=== PATIENT | female | born 1990 | race Caucasian/White ===

== ENCOUNTER 2016-07-25 06:23 | Inpatient (IN) | payer MEDICAID ==
[~2016-07-25 06:23] MED LIST: CEFAZOLIN 2 GM/D5W RTU 2 GM/50 ML RTUPB IV PRN; LACTATED RINGERS 1000 ML IV PRN; RINGERS SOLUTION,LACTATED 2,000 ML IV PRN
[2016-07-25 07:03] LABS: APPEARANCE,URINE CLOUDY; BILIRUBIN,URINE NEGATIVE (NEGATIVE); GLUCOSE, URINE NEGATIVE (NEGATIVE); KETONES,URINE TRACE mg/dL (NEGATIVE); LEUKOCYTE ESTERASE,URINE SMALL (NEGATIVE); NITRITE,URINE NEGATIVE (NEGATIVE); PROTEIN,URINE NEGATIVE (NEGATIVE); URINE SPECIFIC GRAVITY 1.009; UROBILINOGEN,URINE NEGATIVE mg/dL (<2.0)
[2016-07-25 07:14] LABS: URINE BARBITURATES SCREEN NEGATIVE; URINE METHADONE SCREEN NEGATIVE; URINE PHENCYCLIDINE SCREEN NEGATIVE
[2016-07-25 07:22] LABS: ABSOLUTE BASOPHILS # (AUTO) 0.1 10^3/uL (0.0-0.2); ABSOLUTE EOSINOPHILS # (AUTO) 0.1 10^3/uL (0.0-0.6); ABSOLUTE LYMPHOCYTES (AUTO) 2.8 10^3/uL (0.5-4.7); BASOPHILS % (AUTO) 0.7 % (0-2); EOSINOPHILS % (AUTO) 0.6 % (0-6); HEMOGLOBIN 10.6 g/dL (12.0-15.5); HGB HCT DIFFERENCE 0.8; LYMPHOCYTES % (AUTO) 28.2 % (13-45); MEAN CORPUSCULAR HEMOGLOBIN 30.4 pg (27.0-33.4); MEAN CORPUSCULAR HGB CONC 34.1 g/dL (32.0-36.0); MEAN CORPUSCULAR VOLUME 89 fl (80-97); MONOCYTES % (AUTO) 10.2 % (3-13); RED BLOOD COUNT 3.48 10^6/uL (3.72-5.28); RED CELL DISTRIBUTION WIDTH 14.1 % (11.5-14.0); SEGMENTED NEUTROPHILS % (AUTO) 60.3 % (42-78); WHITE BLOOD COUNT 9.9 10^3/uL (4.0-10.5)
[2016-07-25 07:27] LABS: URINE OPIATES LOW UNCONFIRMED POSITIVE
[2016-07-25] MEDS ORDERED: CEFAZOLIN 2 GM/D5W RTU 2 GM/50 ML RTUPB IV ONE (07:58)
[2016-07-25] MEDS ORDERED: OXYTOCIN 10 UNIT/ML VIAL ONE (09:05)
[2016-07-25] MEDS ORDERED: EPHEDRINE SULFATE INJ 50 MG/1 ML AMPULE ONE (09:05)
[2016-07-25] MEDS ORDERED: MORPHINE SULFATE 10 MG/ML INJ ONE (09:05)
[2016-07-25] MEDS ORDERED: MIDAZOLAM 2 MG/2 ML INJ ONE (09:05)
[2016-07-25] MEDS ORDERED: ONDANSETRON HCL INJ/PF 4 MG/2 ML SDV ONE (09:06)
[2016-07-25] MEDS ORDERED: FENTANYL CITRATE INJ/PF 100 MCG/2 ML AMPUL ONE (09:06)
[2016-07-25] MEDS ORDERED: LIDOCAINE 2% INJ-PF (20 MG/ML) 10 ML AMPUL ONE (09:06)
[2016-07-25] MEDS ORDERED: ACETAMINOPHEN 100 ML IV ONE (09:48)
[2016-07-25] MEDS ORDERED: MEPERIDINE HCL/PF INJ 25 MG/1 ML DISP.SYRIN IV PRN (09:52)
[2016-07-25] MEDS ORDERED: MORPHINE SULFATE 10 MG/ML INJ IV PRN (09:52)
[2016-07-25] MEDS ORDERED: PROMETHAZINE HCL INJ 25 MG/1 ML VIAL IV PRN ×3 (09:52→10:52)
[2016-07-25] MEDS ORDERED: FENTANYL CITRATE INJ/PF 100 MCG/2 ML AMPUL IV PRN ×3 (09:52)
[2016-07-25] MEDS ORDERED: DIPHENHYDRAMINE HCL 50 MG/ML VIAL IV PRN (09:52)
[2016-07-25] MEDS ORDERED: OXYCODONE-ACETAMINOPHEN 5-325 MG TABLET PO PRN ×3 (09:52→10:52)
--- NOTE | 2016-07-25 10:03 | Non Stress Test Report ---
Non Stress Test Datetime Report Generated by CPN: 07/25/2016 10:02 DEMOGRAPHIC EGA NST: 33.0 INDICATION Indication for Study: Ordered by Provider; Other Indication for Study (NST) Other: Labor check MONITORING Monitor Explained: Monitor Explained; Test Explained; Patient Verbalized Understanding Time on Monitor: 06/08/2016 11:00 Time off Monitor: 06/08/2016 11:36 NST Duration: 36 NST INTERVENTIONS NST Interventions: None Physician Notified NST: Dr Javed BABY A: [id number] BABY A Movement : Present Contraction Frequency : 3-5 Accelerations : 15X15 Decelerations : None Variability : Moderate 6-25bpm NST Review: Meets Criteria for Reactive NST NST Review and Verified By : Sarah Sampson RN NST Results: Reactive NST REPORT Report Trigger: Send Report
[2016-07-25] MEDS ORDERED: OXYTOCIN/NORMAL SALINE 20 UNIT/1,000 ML RTUINJ ONE (10:12)
[2016-07-25] MEDS ORDERED: ACETAMINOPHEN 325 MG TABLET PO PRN (10:52)
[2016-07-25] MEDS ORDERED: DIPH/PERTUSS(ACELL)/TETANUS VAC/PF 0.5 ML SYR (>=10YO) IM PRN (10:52)
[2016-07-25] MEDS ORDERED: HYDROMORPHONE HCL INJ/PF 2 MG/ML AMPULE IV PRN (10:52)
[2016-07-25] MEDS ORDERED: OXYTOCIN/NORMAL SALINE 1,000 ML IV PRN (10:52)
[2016-07-25] MEDS ORDERED: SIMETHICONE 80 MG TAB.CHEW PO PRN (10:52)
[2016-07-25] MEDS ORDERED: MEASLES,MUMPS&RUBELLA VACC/PF 0.5 ML VIAL SUBCUT PRN (10:52)
[2016-07-25] MEDS ORDERED: KETOROLAC TROMETHAMINE INJ/PF 30 MG/1 ML SDV ONE (10:57)
[2016-07-25] MEDS ORDERED: PRENATAL VITAMIN W-O CA NO5/FE FUMARATE/FA CAPSULE PO ONE (11:15)
[2016-07-25] MEDS ORDERED: HYDROMORPHONE HCL INJ/PF 2 MG/ML AMPULE ONE (11:42)
[2016-07-25] MEDS ORDERED: DOCUSATE SODIUM 100 MG CAPSULE PO ONE (12:00)
--- NOTE | 2016-07-25 12:00 | L&D Flow Sheet ---
LD Flowsheet Datetime Report Generated by CPN: 07/25/2016 12:00 Datetime: 07/25/2016 11:58 Pulse: 57 (QS system process) SpO2 (%): 98 (QS system process) Datetime: 07/25/2016 11:57 NBP Sys/Elo/Mean (mmHg): 115 (QS system process) : 73 (QS system process) : 88 (QS system process) Pulse: 54 (QS system process) Respirations: 14 (Kalli Bellavance, RNC) Datetime: 07/25/2016 11:53 Pulse: 56 (QS system process) SpO2 (%): 98 (QS system process) Datetime: 07/25/2016 11:52 NBP Sys/Elo/Mean (mmHg): 114 (QS system process) : 69 (QS system process) : 86 (QS system process) Pulse: 53 (QS system process) Respirations: 14 (Kalli Bellavance, RNC) Pain Pain Scale: 3 (Kalli Bellavance, RNC) Datetime: 07/25/2016 11:48 Pulse: 50 (QS system process) SpO2 (%): 98 (QS system process) Datetime: 07/25/2016 11:47 NBP Sys/Elo/Mean (mmHg): 118 (QS system process) : 68 (QS system process) : 87 (QS system process) Pulse: 56 (QS system process) Datetime: 07/25/2016 11:45 Pain Pain Scale: 3 (Kalli Bellavance, RNC) Pain Presence: Constant (Kalli Bellavance, RNC) Pain Type: Cramping (Kalli Bellavance, RNC) Pain Location: Abdomen (Kalli Bellavance, RNC) Pain Goal: 1 (Kalli Bellavance, RNC) Pain Relief Measures: Pain Medication Given (Kalli Bellavance, RNC) Pain Assessment Comments: medicated with dilaudid 2 mg iv (Kalli Bellavance, RNC) Datetime: 07/25/2016 11:43 NBP Sys/Elo/Mean (mmHg): 134 (QS system process) : 65 (QS system process) : 91 (QS system process) Pulse: 48 (QS system process) Pulse: 51 (QS system process) SpO2 (%): 100 (QS system process) Datetime: 07/25/2016 11:38 Pulse: 51 (QS system process) SpO2 (%): 100 (QS system process) Datetime: 07/25/2016 11:37 NBP Sys/Elo/Mean (mmHg): 127 (QS system process) : 80 (QS system process) : 99 (QS system process) Pulse: 49 (QS system process) Respirations: 15 (Kalli Bellavance, RNC) Pain Pain Scale: 3 (Kalli Bellavance, RNC) Pain Presence: Constant (Kalli Bellavance, RNC) Pain Type: Cramping (Kalli Bellavance, RNC) Pain Location: Abdomen (Kalli Bellavance, RNC) Pain Goal: 1 (Kalli Bellavance, RNC) Pain Relief Measures: Comfort Measures (Kalli Bellavance, RNC) Datetime: 07/25/2016 11:33 Pulse: 50 (QS system process) SpO2 (%): 100 (QS system process) Datetime: 07/25/2016 11:32 NBP Sys/Elo/Mean (mmHg): 129 (QS system process) : 76 (QS system process) : 99 (QS system process) Pulse: 47 (QS system process) Respirations: 14 (Kalli Bellavance, RNC) Datetime: 07/25/2016 11:28 Pulse: 50 (QS system process) SpO2 (%): 100 (QS system process) Datetime: 07/25/2016 11:27 NBP Sys/Elo/Mean (mmHg): 129 (QS system process) : 79 (QS system process) : 99 (QS system process) Pulse: 47 (QS system process) Respirations: 15 (Kalli Bellavance, RNC) Datetime: 07/25/2016 11:23 Pulse: 51 (QS system process) SpO2 (%): 100 (QS system process) Datetime: 07/25/2016 11:22 NBP Sys/Elo/Mean (mmHg): 131 (QS system process) : 70 (QS system process) : 93 (QS system process) Pulse: 53 (QS system process) Respirations: 16 (Kalli Bellavance, RNC) Pain Pain Scale: 3 (Kalli Bellavance, RNC) Pain Presence: Constant (Kalli Bellavance, RNC) Pain Type: Cramping (Kalli Bellavance, RNC) Pain Location: Abdomen (Kalli Bellavance, RNC) Pain Goal: 1 (Kalli Bellavance, RNC) Pain Relief Measures: Comfort Measures (Kalli Bellavance, RNC) Datetime: 07/25/2016 11:18 Pulse: 50 (QS system process) SpO2 (%): 100 (QS system process) Datetime: 07/25/2016 11:17 NBP Sys/Elo/Mean (mmHg): 137 (QS system process) : 76 (QS system process) : 98 (QS system process) Pulse: 55 (QS system process) Respirations: 14 (Kalli Bellavance, RNC) Datetime: 07/25/2016 11:13 Pulse: 53 (QS system process) SpO2 (%): 100 (QS system process) Datetime: 07/25/2016 11:12 NBP Sys/Elo/Mean (mmHg): 128 (QS system process) : 74 (QS system process) : 96 (QS system process) Pulse: 56 (QS system process) Respirations: 14 (Kalli Bellavance, RNC) Datetime: 07/25/2016 11:08 Pulse: 51 (QS system process) SpO2 (%): 100 (QS system process) Datetime: 07/25/2016 11:07 NBP Sys/Elo/Mean (mmHg): 129 (QS system process) : 73 (QS system process) : 96 (QS system process) Pulse: 53 (QS system process) Respirations: 16 (Kalli Bellavance, RNC) Pain Pain Scale: 3 (Kalli Bellavance, RNC) Pain Presence: Constant (Kalli Bellavance, RNC) Pain Type: Cramping (Kalli Bellavance, RNC) Pain Location: Abdomen (Kalli Bellavance, RNC) Pain Goal: 1 (Kalli Bellavance, RNC) Pain Relief Measures: Comfort Measures (Kalli Bellavance, RNC) Datetime: 07/25/2016 11:03 Pulse: 49 (QS system process) SpO2 (%): 100 (QS system process) Datetime: 07/25/2016 11:02 NBP Sys/Elo/Mean (mmHg): 135 (QS system process) : 83 (QS system process) : 104 (QS system process) Pulse: 52 (QS system process) Datetime: 07/25/2016 10:58 Pulse: 48 (QS system process) SpO2 (%): 100 (QS system process) Pain Pain Scale: 4 (Kalli Bellavance, RNC) Pain Presence: Constant (Kalli Bellavance, RNC) Pain Type: Cramping (Kalli Bellavance, RNC) Pain Location: Abdomen (Kalli Bellavance, RNC) Pain Goal: 1 (Kalli Bellavance, RNC) Pain Relief Measures: Pain Medication Given (Kalli Bellavance, RNC) Pain Assessment Comments: toradol (Kalli Bellavance, RNC) Datetime: 07/25/2016 10:57 NBP Sys/Elo/Mean (mmHg): 137 (QS system process) : 76 (QS system process) : 101 (QS system process) Pulse: 47 (QS system process) Respirations: 14 (Kalli Bellavance, RNC) Datetime: 07/25/2016 10:53 Pulse: 45 (QS system process) SpO2 (%): 100 (QS system process) Datetime: 07/25/2016 10:52 NBP Sys/Elo/Mean (mmHg): 136 (QS system process) : 70 (QS system process) : 98 (QS system process) Pulse: 48 (QS system process) Respirations: 16 (Kalli Bellavance, RNC) Datetime: 07/25/2016 10:48 Pulse: 52 (QS system process) SpO2 (%): 100 (QS system process) Datetime: 07/25/2016 10:47 NBP Sys/Elo/Mean (mmHg): 132 (QS system process) : 81 (QS system process) : 102 (QS system process) Pulse: 47 (QS system process) Respirations: 15 (Kalli Bellavance, RNC) Datetime: 07/25/2016 10:43 Pulse: 48 (QS system process) SpO2 (%): 100 (QS system process) Datetime: 07/25/2016 10:42 NBP Sys/Elo/Mean (mmHg): 133 (QS system process) : 80 (QS system process) : 100 (QS system process) Pulse: 48 (QS system process) Respirations: 15 (Kalli Bellavance, RNC) Datetime: 07/25/2016 10:38 Pulse: 47 (QS system process) SpO2 (%): 100 (QS system process) Datetime: 07/25/2016 10:37 NBP Sys/Elo/Mean (mmHg): 136 (QS system process) : 80 (QS system process) : 103 (QS system process) Pulse: 48 (QS system process) Respirations: 16 (Kalli Bellavance, RNC) Pain Pain Scale: 4 (Kalli Bellavance, RNC) Pain Presence: Constant (Kalli Bellavance, RNC) Pain Type: Cramping (Kalli Bellavance, RNC) Pain Location: Abdomen (Kalli Bellavance, RNC) Pain Goal: 1 (Kalli Bellavance, RNC) Pain Relief Measures: Comfort Measures (Annotations: patient resting comfortably) (Kalli Bellavance, RNC) Datetime: 07/25/2016 10:33 Pulse: 50 (QS system process) SpO2 (%): 100 (QS system process) Datetime: 07/25/2016 10:32 NBP Sys/Elo/Mean (mmHg): 138 (QS system process) : 79 (QS system process) : 101 (QS system process) Pulse: 50 (QS system process) Respirations: 15 (Kalli Bellavance, RNC) Datetime: 07/25/2016 10:28 Pulse: 52 (QS system process) SpO2 (%): 100 (QS system process) Datetime: 07/25/2016 10:27 NBP Sys/Elo/Mean (mmHg): 122 (QS system process) : 73 (QS system process) : 94 (QS system process) Pulse: 50 (QS system process) Respirations: 17 (Kalli Bellavance, RNC) Datetime: 07/25/2016 10:25 NBP Sys/Elo/Mean (mmHg): 135 (QS system process) : 72 (QS system process) : 96 (QS system process) Pulse: 54 (QS system process) Respirations: 16 (Kalli Bellavance, RNC) Datetime: 07/25/2016 10:23 Pulse: 51 (QS system process) SpO2 (%): 100 (QS system process) Datetime: 07/25/2016 10:22 Vital Signs Stage of : Recovery (Kalli Bellavance, RNC) Respirations: 16 (Kalli Bellavance, RNC) SpO2 (%): 100 (Kalli Bellavance, RNC) Temperature (F): 96.9 (Kalli Bellavance, RNC) Temperature (C): 36.1 (QS system process) Temperature Route: Oral (Kalli Bellavance, RNC) Pain Pain Scale: 4 (Kalli Bellavance, RNC) Pain Presence: Constant (Kalli Bellavance, RNC) Pain Type: Cramping (Kalli Bellavance, RNC) Pain Location: Abdomen (Kalli Bellavance, RNC) Pain Goal: 1 (Kalli Bellavance, RNC) Pain Relief Measures: Comfort Measures (Kalli Bellavance, RNC)
[2016-07-25] MEDS: OXYCODONE-ACETAMINOPHEN 5-325 MG TABLET PO PRN ×3 (13:00→21:12)
[2016-07-25] MEDS ORDERED: KETOROLAC TROMETHAMINE INJ/PF 30 MG/1 ML SDV IV SCH (14:00)
[2016-07-25] MEDS: KETOROLAC TROMETHAMINE INJ/PF 30 MG/1 ML SDV IV SCH (17:06)
[2016-07-25] MEDS: DOCUSATE SODIUM 100 MG CAPSULE PO SCH (17:06)
--- NOTE | 2016-07-25 19:00 | L&D Flow Sheet ---
LD Flowsheet Datetime Report Generated by CPN: 07/25/2016 19:00 Datetime: 07/25/2016 12:08 Pulse: 54 (QS system process) SpO2 (%): 97 (QS system process) Datetime: 07/25/2016 12:07 NBP Sys/Elo/Mean (mmHg): 108 (QS system process) : 69 (QS system process) : 83 (QS system process) Pulse: 55 (QS system process) Respirations: 14 (Kalli Bellavance, RNC) SpO2 (%): 100 (Kalli Bellavance, RNC) Temperature (F): 97.0 (Kalli Bellavance, RNC) Temperature (C): 36.1 (QS system process) Temperature Route: Oral (Kalli Bellavance, RNC) Datetime: 07/25/2016 12:03 Pulse: 55 (QS system process) SpO2 (%): 99 (QS system process) Datetime: 07/25/2016 12:02 NBP Sys/Elo/Mean (mmHg): 111 (QS system process) : 72 (QS system process) : 86 (QS system process) Pulse: 53 (QS system process) Respirations: 16 (Kalli Bellavance, RNC) Datetime: 07/25/2016 11:58 Pulse: 57 (QS system process) SpO2 (%): 98 (QS system process) Datetime: 07/25/2016 11:57 NBP Sys/Elo/Mean (mmHg): 115 (QS system process) : 73 (QS system process) : 88 (QS system process) Pulse: 54 (QS system process) Respirations: 14 (Kalli Bellavance, RNC) Datetime: 07/25/2016 11:53 Pulse: 56 (QS system process) SpO2 (%): 98 (QS system process) Datetime: 07/25/2016 11:52 NBP Sys/Elo/Mean (mmHg): 114 (QS system process) : 69 (QS system process) : 86 (QS system process) Pulse: 53 (QS system process) Respirations: 14 (Kalli Bellavance, RNC) Pain Scale: 3 (Kalli Bellavance, RNC) Datetime: 07/25/2016 11:48 Pulse: 50 (QS system process) SpO2 (%): 98 (QS system process) Datetime: 07/25/2016 11:47 NBP Sys/Elo/Mean (mmHg): 118 (QS system process) : 68 (QS system process) : 87 (QS system process) Pulse: 56 (QS system process) Datetime: 07/25/2016 11:45 Pain Scale: 3 (Kalli Bellavance, RNC) Pain Presence: Constant (Kalli Bellavance, RNC) Pain Type: Cramping (Kalli Bellavance, RNC) Pain Location: Abdomen (Kalli Bellavance, RNC) Pain Goal: 1 (Kalli Bellavance, RNC) Pain Relief Measures: Pain Medication Given (Kalli Bellavance, RNC) Pain Assessment Comments: medicated with dilaudid 2 mg iv (Kalli Bellavance, RNC) Datetime: 07/25/2016 11:43 NBP Sys/Elo/Mean (mmHg): 134 (QS system process) : 65 (QS system process) : 91 (QS system process) Pulse: 48 (QS system process) Pulse: 51 (QS system process) SpO2 (%): 100 (QS system process) Datetime: 07/25/2016 11:38 Pulse: 51 (QS system process) SpO2 (%): 100 (QS system process) Datetime: 07/25/2016 11:37 NBP Sys/Elo/Mean (mmHg): 127 (QS system process) : 80 (QS system process) : 99 (QS system process) Pulse: 49 (QS system process) Respirations: 15 (Kalli Bellavance, RNC) Pain Scale: 3 (Kalli Bellavance, RNC) Pain Presence: Constant (Kalli Bellavance, RNC) Pain Type: Cramping (Kalli Bellavance, RNC) Pain Location: Abdomen (Kalli Bellavance, RNC) Pain Goal: 1 (Kalli Bellavance, RNC) Pain Relief Measures: Comfort Measures (Kalli Bellavance, RNC) Datetime: 07/25/2016 11:33 Pulse: 50 (QS system process) SpO2 (%): 100 (QS system process) Datetime: 07/25/2016 11:32 NBP Sys/Elo/Mean (mmHg): 129 (QS system process) : 76 (QS system process) : 99 (QS system process) Pulse: 47 (QS system process) Respirations: 14 (Kalli Bellavance, RNC) Datetime: 07/25/2016 11:28 Pulse: 50 (QS system process) SpO2 (%): 100 (QS system process) Datetime: 07/25/2016 11:27 NBP Sys/Elo/Mean (mmHg): 129 (QS system process) : 79 (QS system process) : 99 (QS system process) Pulse: 47 (QS system process) Respirations: 15 (Kalli Bellavance, RNC) Datetime: 07/25/2016 11:23 Pulse: 51 (QS system process) SpO2 (%): 100 (QS system process) Datetime: 07/25/2016 11:22 NBP Sys/Elo/Mean (mmHg): 131 (QS system process) : 70 (QS system process) : 93 (QS system process) Pulse: 53 (QS system process) Respirations: 16 (Kalli Bellavance, RNC) Pain Scale: 3 (Kalli Bellavance, RNC) Pain Presence: Constant (Kalli Bellavance, RNC) Pain Type: Cramping (Kalli Bellavance, RNC) Pain Location: Abdomen (Kalli Bellavance, RNC) Pain Goal: 1 (Kalli Bellavance, RNC) Pain Relief Measures: Comfort Measures (Kalli Bellavance, RNC) Datetime: 07/25/2016 11:18 Pulse: 50 (QS system process) SpO2 (%): 100 (QS system process) Datetime: 07/25/2016 11:17 NBP Sys/Elo/Mean (mmHg): 137 (QS system process) : 76 (QS system process) : 98 (QS system process) Pulse: 55 (QS system process) Respirations: 14 (Kalli Bellavance, RNC) Datetime: 07/25/2016 11:13 Pulse: 53 (QS system process) SpO2 (%): 100 (QS system process) Datetime: 07/25/2016 11:12 NBP Sys/Elo/Mean (mmHg): 128 (QS system process) : 74 (QS system process) : 96 (QS system process) Pulse: 56 (QS system process) Respirations: 14 (Kalli Bellavance, RNC) Datetime: 07/25/2016 11:08 Pulse: 51 (QS system process) SpO2 (%): 100 (QS system process) Datetime: 07/25/2016 11:07 NBP Sys/Elo/Mean (mmHg): 129 (QS system process) : 73 (QS system process) : 96 (QS system process) Pulse: 53 (QS system process) Respirations: 16 (Kalli Bellavance, RNC) Pain Scale: 3 (Kalli Bellavance, RNC) Pain Presence: Constant (Kalli Bellavance, RNC) Pain Type: Cramping (Kalli Bellavance, RNC) Pain Location: Abdomen (Kalli Bellavance, RNC) Pain Goal: 1 (Kalli Bellavance, RNC) Pain Relief Measures: Comfort Measures (Kalli Bellavance, RNC) Datetime: 07/25/2016 11:03 Pulse: 49 (QS system process) SpO2 (%): 100 (QS system process) Datetime: 07/25/2016 11:02 NBP Sys/Elo/Mean (mmHg): 135 (QS system process) : 83 (QS system process) : 104 (QS system process) Pulse: 52 (QS system process) Datetime: 07/25/2016 10:58 Pulse: 48 (QS system process) SpO2 (%): 100 (QS system process) Pain Scale: 4 (Kalli Bellavance, RNC) Pain Presence: Constant (Kalli Bellavance, RNC) Pain Type: Cramping (Kalli Bellavance, RNC) Pain Location: Abdomen (Kalli Bellavance, RNC) Pain Goal: 1 (Kalli Bellavance, RNC) Pain Relief Measures: Pain Medication Given (Kalli Bellavance, RNC) Pain Assessment Comments: toradol (Kalli Bellavance, RNC) Datetime: 07/25/2016 10:57 NBP Sys/Elo/Mean (mmHg): 137 (QS system process) : 76 (QS system process) : 101 (QS system process) Pulse: 47 (QS system process) Respirations: 14 (Kalli Bellavance, RNC) Datetime: 07/25/2016 10:53 Pulse: 45 (QS system process) SpO2 (%): 100 (QS system process) Datetime: 07/25/2016 10:52 NBP Sys/Elo/Mean (mmHg): 136 (QS system process) : 70 (QS system process) : 98 (QS system process) Pulse: 48 (QS system process) Respirations: 16 (Kalli Bellavance, RNC) Datetime: 07/25/2016 10:48 Pulse: 52 (QS system process) SpO2 (%): 100 (QS system process) Datetime: 07/25/2016 10:47 NBP Sys/Elo/Mean (mmHg): 132 (QS system process) : 81 (QS system process) : 102 (QS system process) Pulse: 47 (QS system process) Respirations: 15 (Kalli Bellavance, RNC) Datetime: 07/25/2016 10:43 Pulse: 48 (QS system process) SpO2 (%): 100 (QS system process) Datetime: 07/25/2016 10:42 NBP Sys/Elo/Mean (mmHg): 133 (QS system process) : 80 (QS system process) : 100 (QS system process) Pulse: 48 (QS system process) Respirations: 15 (Kalli Bellavance, RNC) Datetime: 07/25/2016 10:38 Pulse: 47 (QS system process) SpO2 (%): 100 (QS system process) Datetime: 07/25/2016 10:37 NBP Sys/Elo/Mean (mmHg): 136 (QS system process) : 80 (QS system process) : 103 (QS system process) Pulse: 48 (QS system process) Respirations: 16 (Kalli Bellavance, RNC) Pain Scale: 4 (Kalli Bellavance, RNC) Pain Presence: Constant (Kalli Bellavance, RNC) Pain Type: Cramping (Kalli Bellavance, RNC) Pain Location: Abdomen (Kalli Bellavance, RNC) Pain Goal: 1 (Kalli Bellavance, RNC) Pain Relief Measures: Comfort Measures (Annotations: patient resting comfortably) (Kalli Bellavance, RNC) Datetime: 07/25/2016 10:33 Pulse: 50 (QS system process) SpO2 (%): 100 (QS system process) Datetime: 07/25/2016 10:32 NBP Sys/Elo/Mean (mmHg): 138 (QS system process) : 79 (QS system process) : 101 (QS system process) Pulse: 50 (QS system process) Respirations: 15 (Kalli Bellavance, RNC) Datetime: 07/25/2016 10:28 Pulse: 52 (QS system process) SpO2 (%): 100 (QS system process) Datetime: 07/25/2016 10:27 NBP Sys/Elo/Mean (mmHg): 122 (QS system process) : 73 (QS system process) : 94 (QS system process) Pulse: 50 (QS system process) Respirations: 17 (Kalli Bellavance, RNC) Datetime: 07/25/2016 10:25 NBP Sys/Elo/Mean (mmHg): 135 (QS system process) : 72 (QS system process) : 96 (QS system process) Pulse: 54 (QS system process) Respirations: 16 (Kalli Bellavance, RNC) Datetime: 07/25/2016 10:23 Pulse: 51 (QS system process) SpO2 (%): 100 (QS system process) Datetime: 07/25/2016 10:22 Stage of : Recovery (Kalli Bellavance, RNC) Respirations: 16 (Kalli Bellavance, RNC) SpO2 (%): 100 (Kalli Bellavance, RNC) Temperature (F): 96.9 (Kalli Bellavance, RNC) Temperature (C): 36.1 (QS system process) Temperature Route: Oral (Kalli Bellavance, RNC) Pain Scale: 4 (Kalli Bellavance, RNC) Pain Presence: Constant (Kalli Bellavance, RNC) Pain Type: Cramping (Kalli Bellavance, RNC) Pain Location: Abdomen (Kalli Bellavance, RNC) Pain Goal: 1 (Kalli Bellavance, RNC) Pain Relief Measures: Comfort Measures (Kalli Bellavance, RNC)
[2016-07-25] MEDS: RINGERS SOLUTION,LACTATED 1,000 ML IV PRN ×2 (20:08→23:37)
[2016-07-25] MEDS ORDERED: RINGERS SOLUTION,LACTATED 500 ML IV ONE (20:45)
[2016-07-26] MEDS: KETOROLAC TROMETHAMINE INJ/PF 30 MG/1 ML SDV IV SCH (01:23)
[2016-07-26] MEDS: OXYCODONE-ACETAMINOPHEN 5-325 MG TABLET PO PRN ×5 (01:28→21:45)
--- NOTE | 2016-07-26 06:00 | L&D General Admission ---
General Admit Datetime Report Generated by CPN: 07/26/2016 06:00 INFORMATION Patient Age: 26 (06/08/2016 09:32:QS system process) EDC: 07/27/2016 00:00 (06/08/2016 10:45:Yelitza Chowdhury RN) Para: 1 (06/08/2016 14:00:Yelitza Chowdhury RN) Baby, Number in Womb: 1 (06/08/2016 14:00:Yelitza Chowdhury RN) CARE Month of 1st Visit: 03/2016 (06/08/2016 10:45:Sindi Stanton RN) Adequate Care: No (06/08/2016 10:45:Sindi Stanton RN) Prepregnancy Weight (lb): 93 (06/08/2016 10:45:Sindi Stanton RN) Prepregnancy Weight (kg): 42.3 (06/08/2016 10:45:QS system process) Height (in): 63 (07/25/2016 11:23:QS system process) ALLERGIES Medication Allergies: No Known Allergies (06/08/2016) (06/08/2016 09:32:QS system process) DEMOGRAPHICS Address: [address] [place] [id number] (06/08/2016 09:32:QS system process) Zipcode: [id number] (06/08/2016 09:32:QS system process) Home (06/08/2016 10:33:QS system process) N: [id number] (06/08/2016 09:32:QS system process) Next of Kin Name: YOLANDA RALPH (06/08/2016 10:33:QS system process) Next of Kin (06/08/2016 10:33:QS system process) Next of Kin Relationship: OR (06/08/2016 10:33:QS system process) Date of : 1990 (06/08/2016 09:32:QS system process) Marital Status: Single (06/08/2016 09:32:QS system process) Sex: Female (06/08/2016 09:32:QS system process) Race: (06/08/2016 09:32:QS system process) Ethnicity: Non- or (06/08/2016 09:32:QS system process) Sabianism: Taoism (06/08/2016 09:32:QS system process) Feeding Preference: Formula (06/08/2016 10:45:Michaela Lewis RN) Benefit of Breast Feed Discussed: Yes (06/08/2016 10:45:Michaela Lewis RN) LABS Blood Type: O Negative (06/08/2016 10:45:Sindi Stanton RN) Antibody Screen: Negative (06/08/2016 10:45:Sindi Stanton RN) Rho(G) this : Yes (06/08/2016 10:45:Sindi Stanton RN) Date Rho(G) Given: 05/06/16 (06/08/2016 10:45:Sindi Stanton RN) Hemoglobin: 10.6 L (07/25/2016 07:00:QS system process) Hematocrit: 31.0 L (07/25/2016 07:00:QS system process) MCV: 89 (07/25/2016 07:00:QS system process) RPR/VDRL: Nonreactive (06/08/2016 10:45:Sindi Stanton RN) HIV Exposure Test: Negative (06/08/2016 10:45:Sindi Stanton RN) Hepatitis B: Negative (06/08/2016 10:45:Sindi Stanton RN) Rubella: Immune (06/08/2016 10:45:Sindi Stanton RN) OB/PREVIOUS HISTORY Comments Obstetrical History: G1: 2010 38 week C/Section baby girl, Breech, 6 lb 11 oz G2: Current; Late care at 25 weeks, Lapse in care 28-37 weeks (06/08/2016 10:45:Sindi Stanton RN)
--- NOTE | 2016-07-26 06:00 | L&D Current Admission ---
Current Admit Datetime Report Generated by CPN: 07/26/2016 06:00 ADMISSION INFORMATION Chief Complaint: Uterine Cramping; Nausea; Vomiting (06/08/2016 11:10:Yelitza Chowdhury RN)
[2016-07-26 06:33] LABS: HEMATOCRIT 26.9 % (36.0-47.0); HEMOGLOBIN 8.9 g/dL (12.0-15.5); HGB HCT DIFFERENCE -0.2; MEAN CORPUSCULAR HEMOGLOBIN 29.8 pg (27.0-33.4); MEAN CORPUSCULAR VOLUME 90 fl (80-97); RED BLOOD COUNT 2.98 10^6/uL (3.72-5.28); RED CELL DISTRIBUTION WIDTH 14.3 % (11.5-14.0); WHITE BLOOD COUNT 14.9 10^3/uL (4.0-10.5)
[2016-07-26] MEDS: IBUPROFEN 800 MG TABLET PO SCH ×3 (09:24→20:12)
[2016-07-26] MEDS: DOCUSATE SODIUM 100 MG CAPSULE PO SCH ×2 (09:24→17:39)
[2016-07-26] MEDS: PRENATAL VITAMIN W-O CA NO5/FE FUMARATE/FA CAPSULE PO SCH (09:25)
--- NOTE | 2016-07-26 11:40 | PDOC PROGRESS REPORT ---
Subjective-OB Subjective: Post Delivery Day: 26 year old. s/p repeat c section O negative/ no rhogam indicated ambulating well +flatus -BM abdomen soft and nontender binder in place incision dry and intact pt requesting pain meds every 4 hours encourage rest and ambulation anticipate d/c in AM Physical Exam (OB) Vital Signs: Temp Pulse Resp BP Pulse Ox 97.9 F 70 20 105/70 99 07/26/16 08:11 07/26/16 08:11 07/26/16 08:11 07/26/16 08:11 07/26/16 08:11 Intake & Output 07/25/16 07/26/16 07/27/16 06:59 06:59 06:59 Intake Total 1250 Output Total 2050 Balance -800 Weight 54 kg - PIH/Pre-Eclampsia Clonus: Negative - Dressing Removed: Yes Incision: Open Closure Type: Sutures - Lochia Lochia Amount: Small 10-25 ml Lochia Color: Rubra/Red - Abdomen Description: Tender, Soft Hernia Present: No Fundal Description: Firm, Midline Fundal Height: u/u - u/2 Objective-Diagnostic Laboratory: 07/26/16 06:24 07/26/16 06:24 WBC 14.9 H RBC 2.98 L Hgb 8.9 L Hct 26.9 L MCV 90 MCH 29.8 MCHC 33.0 RDW 14.3 H Plt Count 208
[2016-07-26] MEDS ORDERED: IBUPROFEN 800 MG TABLET PO SCH (12:00)
[2016-07-27] MEDS: IBUPROFEN 800 MG TABLET PO SCH ×3 (02:09→15:40)
[2016-07-27] MEDS: OXYCODONE-ACETAMINOPHEN 5-325 MG TABLET PO PRN ×3 (04:30→13:20)
[2016-07-27] MEDS: DOCUSATE SODIUM 100 MG CAPSULE PO SCH ×2 (09:07→17:52)
[2016-07-27] MEDS: PRENATAL VITAMIN W-O CA NO5/FE FUMARATE/FA CAPSULE PO SCH (09:07)
--- NOTE | 2016-07-27 12:01 | PDOC DISCHARGE SUMMARY ---
Final Diagnosis Discharge Date: 07/27/16 - Final Diagnosis (1) delivery delivered Is this a current diagnosis for this admission?: Yes Discharge Data - Discharge Medication Home Medications: Pnv with Ca,No.72/Iron/FA [ Plus Tablet] 1 tab PO DAILY 06/08/16 Reason(s) for Admission: Ceasarean Section-Repeat Procedures: None Intrapartum Procedure(s): : Low Cervical, Transverse - Diagnosis Test Laboratory: Temp Pulse Resp BP Pulse Ox 98.1 F 66 16 128/71 H 99 07/27/16 08:50 07/27/16 08:50 07/27/16 08:50 07/27/16 08:50 07/27/16 08:50 07/25/16 07/25/16 07/26/16 06:45 07:00 06:24 RBC 3.48 L 2.98 L Hgb 10.6 L 8.9 L Hct 31.0 L 26.9 L Urine Opiates Screen UNCONFIRMED POSITIVE - Discharge information/Instructions Discharge Activity: Balance Activity w/Rest, No Lifting Over 10 Pounds, No Lifting/Push/Pulling, Pelvic Rest, No tub bath Discharge Diet: Regular Disposition: HOME, SELF-CARE Follow up with: [facility] in: 5, Days
[2016-07-27 13:40] LABS: ABSOLUTE BASOPHILS # (AUTO) 0.1 10^3/uL (0.0-0.2); ABSOLUTE EOSINOPHILS # (AUTO) 0.1 10^3/uL (0.0-0.6); ABSOLUTE LYMPHOCYTES (AUTO) 1.8 10^3/uL (0.5-4.7); ABSOLUTE MONOCYTES (AUTO) 0.5 10^3/uL (0.1-1.4); ABSOLUTE NEUT (AUTO) 9.1 10^3/uL (1.7-8.2); BASOPHILS % (AUTO) 0.4 % (0-2); EOSINOPHILS % (AUTO) 0.7 % (0-6); HEMATOCRIT 25.6 % (36.0-47.0); HEMOGLOBIN 8.4 g/dL (12.0-15.5); HGB HCT DIFFERENCE -0.4; LYMPHOCYTES % (AUTO) 15.8 % (13-45); MEAN CORPUSCULAR HEMOGLOBIN 29.8 pg (27.0-33.4); MEAN CORPUSCULAR HGB CONC 32.8 g/dL (32.0-36.0); MEAN CORPUSCULAR VOLUME 91 fl (80-97); RED BLOOD COUNT 2.81 10^6/uL (3.72-5.28); RED CELL DISTRIBUTION WIDTH 14.4 % (11.5-14.0); SEGMENTED NEUTROPHILS % (AUTO) 79.1 % (42-78); WHITE BLOOD COUNT 11.5 10^3/uL (4.0-10.5)
[2016-07-27 16:27] VITALS: BP 118/78
--- NOTE | 2016-08-25 23:20 | Operative Report ---
Operative Report DATE OF SURGERY: 07/25/16 PREOPERATIVE DIAGNOSIS: 39 week , previous cesaraean section POSTOPERATIVE DIAGNOSIS: same, delivered OPERATION: Repeat Low Transverse Section SURGEON: LUDY CAMPOS ANESTHESIA: Spinal TISSUE REMOVED OR ALTERED: placenta COMPLICATIONS: none ESTIMATED BLOOD LOSS: 600cc INTRAOPERATIVE FINDINGS: viable male infant weight 7-6, ap 9/9. spontaneous intact placenta 3vc. normal appearing uterus, ovaries, tubes PROCEDURE: After appropriate consents had been obtained, the patient was taken to the operating room where regional anesthesia was placed without difficulty. The patient was prepped and draped in the normal sterile fashion in the dorsal supine position with a leftward tilt. Time out procedure was performed. Anesthesia was determined to be adequate and a pfannenstiel incision was made through the prior scar. The fascia was nicked in the midline then extended bilaterally with Starks scissors. The fascia was elevated and then the rectus muscles dissected off sharply. The rectus muscles were then in the midline and the peritonuem identified. The peritoneum was entered sharply and extended with good visualization of the bladder. Bladder blade was inserted and the bladder flap carefully dissected off the lower uterine segment. A transverse incision was made with the scalpel then extended bilaterally in an upward outward motion across the lower uterine segment. Amniotomy revealed clear fluid. The vertex was grasped and elevated easily through the incision followed by the remainder of the infant. The cord was doubly clamped and ligated. The infant was handed off the operative field to the waiting pediatric team. The placenta was then extracted manually intact. The uterus was exteriorized and cleansed of membranous tissue with a sponge on the studio camera operator's hand. The uterine incision was then repaired using 0 vicryl in a running locked fashion. A second layer of the same suture was used to imbricate for hemastasis. The uterus was then returned to the abdomen and gutters were cleared of clots and debris. The fascial incision was closed with 0 vicryl in a running fashion to the midline. The subcutaneous layer was closed with 0 plain in a running stitch. the skin was closed with 4-0 monocryl in subcuticular running stitch. Sponge, lap and needle counts were correct. The patient was transferred to recovery in stable condition.
== END 2016-07-27 18:40 | disposition home or self-care (01) | DRG 765 ==
LOC: 2S 06:23
PROVIDERS: ADMIT Obstetrics & Gynecology; ATTEND Obstetrics & Gynecology
PROC: 4A1HXCZ Monitoring of Products of Conception, Cardiac Rate, External Approach (ICD-10-PCS; 2016-07-25)
PROC: 10D00Z1 Extraction of Products of Conception, Low, Open Approach (ICD-10-PCS; principal; 2016-07-25 09:15)
DX: O34.211 Maternal care for low transverse scar from previous cesarean delivery (principal); O99.324 Drug use complicating childbirth; O69.81X0 Labor and delivery complicated by cord around neck, without compression, not applicable or unspecified; F12.90 Cannabis use, unspecified, uncomplicated; F11.90 Opioid use, unspecified, uncomplicated; F13.90 Sedative, hypnotic, or anxiolytic use, unspecified, uncomplicated; Z37.0 Single live birth; Z3A.39 39 weeks gestation of pregnancy
CPT/HCPCS: 1961; 36415; 59025; 80307; 81001; 85025; 85027; 86850; 86870; 86900; 86901; 94799; G0480; J0131; J0690; J1170; J1885; J2250; J2270; J2405; J2590; J3010; J3490; J7120

== ENCOUNTER 2017-03-20 14:50 | Emergency (ER) | payer MEDICAID ==
[2017-03-20 15:22] VITALS: BP 102/66
--- NOTE | 2017-03-20 15:35 | ER Document Report ---
ED General - General Mode of Arrival: Ambulatory Information source: Patient TRAVEL OUTSIDE OF THE [place] IN LAST 30 DAYS: No - General Chief Complaint: Rib Pain Stated Complaint: ABDOMINAL PAIN Time Seen by Provider: 03/20/17 15:32 Notes: Patient is a 26-year-old female who presents from home with right sided posterior rib pain that started yesterday. She states that while playing with her dog she was pushed backwards into a closet door. She states the pain is worse when she coughs, sneezes, takes a deep breath, bends over or picks up anything heavy. She has tried ibuprofen with no relief. She states at the time of the incident yesterday she was evaluated by EMS who told her that she could have a "cracked rib" but there was not much she could do about it. She states that the pain worsened last when she wanted to come in and be seen. ( JULITA MCFADDEN) - Related Data Allergies/Adverse Reactions: No Known Allergies Allergy (Verified 06/08/16 07:53) Home Medications: Current Home Medications No Home Medications 03/20/17 [History] Past Medical History - General Information source: Patient - Social History Smoking Status: Current Every Day Smoker Family History: None Renal/ Medical History: Denies: Hx Peritoneal Dialysis Past Surgical History: Reports: Hx Section - Immunizations Hx Diphtheria, Pertussis, Tetanus Vaccination: Yes Review of Systems - Review of Systems Constitutional: No symptoms reported EENT: No symptoms reported Cardiovascular: See HPI Respiratory: See HPI Gastrointestinal: No symptoms reported Genitourinary: No symptoms reported Female Genitourinary: No symptoms reported Musculoskeletal: No symptoms reported Skin: No symptoms reported Hematologic/Lymphatic: No symptoms reported Neurological/Psychological: No symptoms reported Physical Exam - Vital signs Vitals: Temp Pulse BP Pulse Ox 98.1 F 116 H 102/66 95 03/20/17 15:20 03/20/17 15:20 03/20/17 15:20 03/20/17 15:20 - Notes Notes: PHYSICAL EXAM: CONSTITUTIONAL: Alert and oriented, well-appearing and in no acute distress. HENT: Normocephalic, atraumatic. Moist mucous membranes. EYES: Pupils equal round and reactive to light, EOM intact. Sclera anicteric, conjunctiva are normal. No entrapment. NECK: supple without lymphadenopathy. No midline tenderness or paraspinous muscle spasms. No step-offs or deformities. ROM intact. HEART: Regular rate and rhythm without murmurs. LUNGS: CTAB and equal. No wheezes, rales or rhonchi. BACK: Tender to palpation just lateral to thoracic spine along rib articulation of ribs number 7-10,no ecchymosis, step-offs, crepitus or swelling noted. no paraspinous spasm, 5+/5 strengths, DTRs 2+. EXTREMITIES: Normal range of motion, no pitting edema. No cyanosis. Cap Refill < 3 seconds. NEURO: Cranial nerves grossly intact. Normal sensory/motor exams. PSYCH: Normal mood, normal affect. SKIN: Warm and dry. Normal turgor. No rashes or lesions noted. (JULITA MCFADDEN) Course - Diagnostic Test Radiology reviewed: Image reviewed, Reports reviewed - Re-evaluation Re-evalutation: 03/20/17 15:35 Patient seen and examined. No palpable crepitus or ecchymosis noted on exam. Lungs with breath sounds equal throughout. Will obtain xray and give IM toradol for pain. 03/20/17 17:33 Reviewed imaging studies which did not show any acute rib fractures. Discussed imaging results with patient. As I was going over imaging results and explaining that I would be giving her a prescription for anti-inflammatories and muscle relaxers, patient became irate that she would not be receiving any narcotic pain medication. I explained that I did not think was be appropriate for me to treat her with narcotic pain medication as she did not have any actual fractures. She requested that a doctor evaluate her after explained that I was her healthcare provider for today's visit. My attending physician also examined patient at the bedside and offered a Lidoderm patch for pain for which I had ordered. Patient left prior to receiving the Lidoderm patch. (JULITA MCFADDEN) 03/20/17 17:43 Patient was evaluated by myself, she believed that all physicians have advised against her when it comes to giving narcotics, this in itself is quite concerning statement. I did not look at the patient's drug database she had only received narcotics in July so I am not sure what she felt this way. It is noted that the patient has been and states that her 8-month-old when she lifts causes her to have pain in the rib area. I feel that giving narcotics to someone that has an is a very poor choice I explained to the mother my concerns and explained that I would gladly give her a Lidoderm patch. Patient immediately began putting her clothes on in front of me I requested that she get dressed after I step out of the room as I do not have a automotive light mechanic. She said she was not shy and appears got dressed and left immediately (CAITLIN CHING) - Vital Signs Vital signs: Temp Pulse Resp BP Pulse Ox 98.1 F 116 H 102/66 95 03/20/17 15:20 03/20/17 15:20 03/20/17 15:20 03/20/17 15:20 Discharge - Discharge Clinical Impression: Contusion of rib on right side Qualifiers: Encounter type: initial encounter Qualified Code(s): S20.211A - Contusion of right front wall of thorax, initial encounter Condition: Stable Disposition: HOME, SELF-CARE Additional Instructions: LOW BACK PAIN: Three out of every four people will have an episode of disabling back pain during their lifetime. Most commonly the pain is due to straining of the muscles and ligaments in the low back. Usual treatment includes: (1) Rest on a firm surface. Avoid lying on your stomach. (2) Ice pack the painful area. After a few days, gentle heat may be used intermittently to relax the area, or ice packs can be continued. (3) Medication may be needed -- muscle relaxers and antiinflammatory medicines are commonly used. (4) As the back improves, exercises are prescribed to strengthen the back and abdominal muscles. Your doctor will advise you on the proper care for your back at each stage in your recovery. You may be better in a few days -- or healing may take several weeks. If new symptoms of a "herniated disc" (radiation of pain, numbness, or tingling down the back of the leg or weakness in the leg) occur, you should be re-examined. Further testing may be necessary. PAIN MEDICATION INJECTION: You have received an injection of a pain medication. You should experience significant pain relief within 45 minutes. If this injection was a narcotic -- it will impair your judgement, slow your reaction time and make you sleepy (as well as relieve your pain). Narcotics also can cause nausea. You should not drive, work with machinery, or perform any task requiring mental alertness until all effects of the medication are gone -- six to eight hours. Do not take any alcohol, or sedatives, and do not take any other medication without checking with your physician. ICE PACKS: Apply ice packs frequently against the painful area. Many different schedules are recommended, such as "20 minutes on, 20 minutes off" or "one hour ice, two hours rest." If you need to work, you may need to go longer between ice treatments. You should plan to have the area ice packed AT LEAST one fourth of the time. The ice should be applied over the wrap, tape, or splint, or over a layer of cloth -- not directly against the skin. Some ice bags have a built-in cloth and can be put directly on the skin. WARM PACKS: After approximately two days, apply gentle heat (such as a heating pad or hot water bottle) for about 20 to 30 minutes about every two hours -- at least four times daily. Warmth and elevation will help you make a more rapid recovery , and will ease the pain considerably. Do not use HOT heat, and never apply heat for longer than 30 minutes. The continuous heat can invisibly damage skin and muscles -- even when no burn is seen on the surface. Damaged muscles can make you MORE sore. FOLLOW-UP CARE: If you have been referred to a physician for follow-up care, call the physician s office for an appointment as you were instructed or within the next two days. If you experience worsening or a significant change in your symptoms, notify the physician immediately or return to the Emergency Department at any time for re-evaluation.
[2017-03-20] MEDS ORDERED: KETOROLAC TROMETHAMINE 60 MG/2 ML SDV IM ONE (15:57)
--- NOTE | 2017-03-20 16:34 | RADIOLOGY REPORT (SQ) ---
EXAM DESCRIPTION: T SPINE AP/LAT COMPLETED DATE/TIME: 03/20/2017 4:11 pm REASON FOR STUDY: hit ribs just lateral to T-spine on right side COMPARISON: None. NUMBER OF VIEWS: Two views. TECHNIQUE: AP and lateral radiographic images acquired of the thoracic spine. LIMITATIONS: None. FINDINGS: MINERALIZATION: Normal. ALIGNMENT: Mild convex right lower thoracic scoliosis. Convex left upper lumbar scoliosis. VERTEBRAE: No fracture or bone lesion. Maintained height, normal segmentation. DISCS: No significant loss of height or significant narrowing. No large osteophytes. HARDWARE: None in the spine. MEDIASTINUM AND SOFT TISSUES: Normal heart size and aortic contour. No soft tissue abnormality. VISUALIZED LUNG SCHAFFER: Clear. OTHER: No other significant finding. IMPRESSION: No acute findings. TECHNICAL DOCUMENTATION: JOB ID: [id number] [employer]- All Rights Reserved
[2017-03-20] MEDS ORDERED: LIDOCAINE 5% (700 MG) TRANSDERMAL ADH..PATCH TP ONE (17:31)
== END 2017-03-20 17:40 | disposition home or self-care (01) ==
LOC: ER 14:50
DX: S20.211A Contusion of right front wall of thorax, initial encounter (principal); F17.200 Nicotine dependence, unspecified, uncomplicated; X58.XXXA Exposure to other specified factors, initial encounter; Y93.K9 Activity, other involving animal care
CPT/HCPCS: 99283; 96372; 72070; J1885

== ENCOUNTER 2017-12-04 17:09 | Emergency (ER) | payer MEDICAID ==
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
[2017-12-04] MEDS ORDERED: CITALOPRAM HYDROBROMIDE 20 MG TABLET PO ONE (18:53)
[2017-12-04] MEDS ORDERED: BUSPIRONE HCL 10 MG TABLET PO ONE (18:53)
[2017-12-04 19:15] VITALS: BP 115/80
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
== END 2017-12-04 19:11 | disposition home or self-care (01) ==
LOC: ER 17:09
DX: F43.20 Adjustment disorder, unspecified (principal); F32.9 Major depressive disorder, single episode, unspecified; G47.00 Insomnia, unspecified; R63.0 Anorexia; F17.200 Nicotine dependence, unspecified, uncomplicated
CPT/HCPCS: 99285; J3490 ×2

== ENCOUNTER 2018-06-17 21:47 | Emergency (ER) | payer MEDICAID ==
--- NOTE | 2018-06-18 01:07 | ER Document Report ---
HPI - HPI Patient complains to provider of: Rash Time Seen by Provider: 06/18/18 00:30 Onset: This afternoon Onset/Duration: Sudden Pain Level: 3 Context: 28-year-old female presents to the emergency department with chief complaint of possible bug bite. She said she was working in the yard today wearing long ana jeans and she noticed it after she was finished. She did not notice a specific bite and said it just appeared. She denies fever or any other constitutional symptoms. - REPRODUCTIVE Reproductive: REPORTS: : Past Medical History - Social History Smoking Status: Never Smoker Family History: None Neurological Medical History: Reports: Hx Migraine Renal/ Medical History: Denies: Hx Peritoneal Dialysis Past Surgical History: Reports: Hx Section - Immunizations Hx Diphtheria, Pertussis, Tetanus Vaccination: Yes Vertical Provider Document - CONSTITUTIONAL Agree With Documented VS: Yes Notes: Reviewed vital signs and nursing note as charted by RN. CONSTITUTIONAL: Well-appearing, well-nourished, acting appropriately for age HEAD: Normocephalic, atraumatic, no swelling EYES: PERRL, Conjunctivae clear, no drainage, EOMI, no scleral icterus ENT: External ears without lesions, External auditory canal is patent, airway patent, mucous membranes pink and moist CARD: Regular rate and rhythm, no murmurs, no rubs, no gallops, capillary refill < 2 seconds, symmetric pulses RESP: The lungs are clear to auscultation bilaterally, no wheezing, no rales, no rhonchi. Respiratory rate and effort are normal, normal chest excursion. No respiratory distress, no retractions, no stridor, no nasal flaring, no accessory muscle use. EXT: Normal ROM in all joints, non-tender to palpation, no effusions, no edema. SKIN: Normal color for age and race, warm, dry, good turgor, Single bulla on right anterior right distal extremity mid lazo. Does not look infected very mild erythema directly surrounding it no evidence of systemic infection no other bullae present NEURO: No facial asymmetry, moves all extremities equally - INFECTION CONTROL TRAVEL OUTSIDE OF THE [place] IN LAST 30 DAYS: No Course - Re-evaluation Re-evalutation: 06/18/18 01:[address] Antony. After discussing it with Dr. Antony lesion is most consistent with a bulla. Patient was instructed to return for treatment if multiple bullae appear or if redness starts to spread indicating signs of infection. - Vital Signs Vital signs: Temp Pulse Resp BP Pulse Ox 98.9 F 116 H 20 109/72 96 06/17/18 21:59 06/17/18 21:59 06/17/18 21:59 06/17/18 21:59 06/17/18 21:59 Discharge - Discharge Clinical Impression: Skin bulla Condition: Good Disposition: HOME, SELF-CARE Additional Instructions: He was seen in the emergency department this evening for a skin bulla. These things can appear spontaneously with some minor skin irritation. It is not a bug bite or a burn. There is very little redness around the site so there is no concern for infection at this time. If you do start to develop multiple bullae please return to the emergency department as we will need to initiate treatment. Right now I do not need to do anything. The bulla should resolve on its own. Also, if redness starts to spread around the site please return to the emergency department as this is sign of infection. If you develop fever, chills, infecti ous type symptoms, or the aforementioned please return to the emergency department.
[2018-06-18 01:38] VITALS: BP 110/80
== END 2018-06-18 01:39 | disposition home or self-care (01) ==
LOC: ER 21:47
DX: R23.8 Other skin changes (principal); R21 Rash and other nonspecific skin eruption
CPT/HCPCS: 99282